=== PATIENT | female | born 1965 | race Asian ===

== ENCOUNTER 2024-07-25 00:06 | Emergency (ER) | payer MEDICAID, SELFPAY ==
[2024-07-25 00:07] VITALS: BMI 20.6
--- NOTE | 2024-07-25 00:09 | EKG_ITS ---
[facility] Test Date: 2024-07-25 Pat Name: CANDIDO RAMÍREZ Department: Room: - Gender: Female Director Of Industrial Relations: : 1965 Requested By: Lenin Phillips Order Number: [id number] Reading MD: Lenin Phillips Measurements Intervals Morning Sun Rate: 94 P: 59 MD: 167 QRS: 54 QRSD: 96 T: 57 QT: 356 QTc: 447 Interpretive Statements SINUS RHYTHM No previous ECG available for comparison /store/S0/[id number]/[id number].pdf
[2024-07-25 00:25] VITALS: BP 178/90; PULSE 98; RESP 18; TEMP 36.5; O2SAT 98
--- NOTE | 2024-07-25 00:51 | XR_ITS ---
Examination: CT brain head without contrast. 2-D sagittal coronal reconstructions Date and time of exam:July 25, 2024 0215 hrs. Indications: Headaches dizziness nausea vomiting today CTDI: vol (mGy):43 DLP: (mGycm):722 Technique: Multiple CT axial sections of the brain have been obtained, 5 mm slice thickness. Contrast has not been administered. 2-D sagittal, coronal reconstructions have been obtained Low dose protocols were performed. One or more of the following dose reduction techniques were used; automated exposure control, adjustment of the mA and/or KV according to patient size, use of iterative reconstruction technique. Findings: No significant ventricular enlargement. Intra-axial or extra-axial hemorrhage density is not seen. No mass effect or midline shift Basal cisterns are not remarkable. Fourth ventricle is midline. Cranial vault intact. Impression: Negative for acute hemorrhage, mass effect or midline shift
--- NOTE | 2024-07-25 00:51 | XR_ITS ---
Examination: AP chest single view Technique one AP upright portable chest single view Exam date 9: July 25, 2024 0057 hours Comparison December 27, 2015 INDICATIONS: Weakness dizziness today. FINDINGS: Again noted pleural parenchymal scarring right apex Normal heart size No interval pneumonia or pulmonary edema IMPRESSION: No interval pneumonia or pulmonary edema
--- NOTE | 2024-07-25 00:52 | EDRME_ITS ---
Rapid Medical Screening Exam [facility] Arrival date/time: 07/25/24 00:06 59F with history of HTN and DM presents to ED with head, neck pain w/o fall/trauma starting around 4 PM, as well as N/V and generalized weakness/dizziness. Chief Complaint: Dizziness Vital signs: Vital Signs Temperature 97.7 F 07/25/24 00:25 Pulse Rate 98 07/25/24 00:25 Respiratory Rate 18 07/25/24 00:25 Blood Pressure 178/90 H 07/25/24 00:25 Pulse Oximetry (%) 98 07/25/24 00:25 Oxygen Delivery Method Room Air 07/25/24 00:25
[2024-07-25] MEDS: ONDANSETRON ODT 4 MG TABRAP PO (01:08)
[2024-07-25 01:31] LABS: Basophils % (Auto) 0 % (0-2.5); Eosinophils % (Auto) 0 % (0-10); Hematocrit 45.3 % (36.0-46.0); Hemoglobin 16.2 g/dL (12.0-16.0); Immature Granulocytes % (Auto) 0 % (0-0); Immature Granulocytes Auto 0.03 Thou/mm3 (0.00-0.00); Lymphocytes # (Auto) 1.5 Thou/mm3 (1.0-4.8); Lymphocytes % (Auto) 18 % (10-50); Mean Corpuscular HGB Conc 35.8 g/dl (31.0-37.0); Mean Corpuscular Hemoglobin 29.6 pg (25.0-35.0); Mean Corpuscular Volume 83 fL (80-100); Monocytes # (Auto) 0.4 Thou/mm3 (0.0-0.8); Monocytes % (Auto) 5 % (0-12); Neutrophils # (Auto) 6.5 Thou/mm3 (1.8-7.7); Neutrophils % (Auto) 76 % (37-80); Nucleated Red Blood Cell % 0 /100 WBC (0); Platelet Count 277 Thou/mm3 (140-440); Red Blood Count 5.48 Miln/mm3 (4.00-5.20); White Blood Count 8.5 Thou/mm3 (3.6-11.0)
[2024-07-25] MEDS: MECLIZINE HCL 25 MG TABLET 50 MG PO (01:31)
[2024-07-25] MEDS: ONDANSETRON INJ 2 MG/ML INJ 2 ML 4 MG IV (01:31)
[2024-07-25 01:55] LABS: Alanine Aminotransferase 48 U/L (10-49); Albumin, Serum 5.2 gm/dL (3.4-4.8); Albumin/Globulin Ratio 1.9 (1.2-2.2); Alkaline Phosphatase 113 U/L (46-116); Anion Gap 11 (7-16); Aspartate Amino Transferase 33 U/L (0-34); BUN/Creatinine Ratio 15 Ratio (12-20); Bilirubin,Total 1.5 mg/dL (0.3-1.2); Blood Urea Nitrogen 12 mg/dL (9-23); Calcium 10.3 mg/dL (8.3-10.6); Calcium (Corrected) 10.3 mg/dL (8.5-10.1); Chloride 99 mMol/L (98-107); Creatinine (Component) 0.8 mg/dL (0.6-1.3); Globulin 2.8 gm/dL (2.3-3.5); Glucose 248 mg/dL (74-106); INR 0.9 (0.9-1.3); Lipase 48 U/L (12-53); Osmolality,Calculated 275 (275-295); Partial Thromboplastin Time 22.9 Seconds (22.0-36.0); Potassium 3.5 mMol/L (3.4-5.1); Prothrombin Time 10.4 Seconds (9.0-12.2); Sodium 134 mMol/L (136-145); Troponin I < 0.020 ng/mL (0.0-0.045); eGFR > 60 See Note
--- NOTE | 2024-07-25 02:53 | PRELIM_ITS ---
CT scan of the head without intravenous contrast (axial sections with sagittal and coronal reformats) July 25, 2024 0215 hoursClinical History: BHANDARI, N/V, dizzinessFindings:There is no evidence of int racranial hemorrhage, mass effect or midline shift. There is mild volume loss. The calvarium is unrem arkable. The mastoid air cells and the visualized paranasal sinuses are clear.Impression:No evidence of intracranial hemorrhage, mass effect or midline shift. Mild volume loss. Report Electronically Sig nikki By: Kiel Du 07/25/2024 2:53:24 AM [EST]
[2024-07-25 04:46] LABS: Collection Type, Urine Clean Catch
[2024-07-25 04:53] LABS: Bilirubin,Urine Negative (Negative); Blood,Urine Negative (Negative); Clarity,Urine Clear (Clear/Hazy); Color,Urine Colorless (Lt Yel-Yel); Glucose, Urine 4+ (Negative); Ketones,Urine 1+ (Negative); Leukocyte Esterase,Urine Negative (Negative); Nitrite,Urine Negative (Negative); PH,Urine 6.5 (5.0-7.0); Protein,Urine 1+ (Neg - Trace); RBC,Urine < 1 /hpf (0-3); Squamous Epithelial Cell,Urine 1 /hpf (0-5); Urobilinogen,Urine Negative mg/dL (0.0-1.0); WBC,Urine 5 /hpf (0-5)
[2024-07-25 05:27] VITALS: BP 166/81; PULSE 89; RESP 16; TEMP 36.8; O2SAT 96
--- NOTE | 2024-07-25 06:29 | PD.EDDIZZY ---
ED Dizzyness RME/HPI General Chief Complaint: Dizziness Stated Complaint: DIZZINESS AND VOMITING Time Seen by Provider: 07/25/24 06:13 Arrival date/time: 07/25/24 59-year-old female significant past medical history of hypertension presents to the emergency department at approximately midnight for complaints of intermittent dizziness for 1 week. Patient reports she had similar episode 1 week ago which had resolved and last night she had episode recurrent associated with vomiting. Patient denies any head injury, no fall, no chest pain, no dyspnea, no h/a, no blurry vision, no fever. Limitations: no limitations RME / HPI RME / HPI Narrative: 07/25/24 00:06 59F with history of HTN and DM presents to ED with head, neck pain w/o fall/trauma starting around 4 PM, as well as N/V and generalized weakness/dizziness. Related Data Previous Rx's ?Medication ?Instructions ?Recorded Hydrocodone/Acetaminophen * (NORCO 2 tab PO Q4H PRN PAIN #14 tabs 12/28/15 5/325 *) ibuprofen 600 mg tablet 600 mg PO Q8HR PRN PAIN #30 tabs 12/28/15 meclizine 25 mg tablet 25 mg PO QDAY PRN dizziness #14 07/25/24 tabs ondansetron 4 mg disintegrating 4 mg PO Q6H PRN nausea and 07/25/24 tablet vomiting #7 tabs Allergies Allergy/AdvReac Type Severity Reaction Status Date / Time NKA Allergy Unknown Uncoded 04/09/03 23:26 No Known Allergies Allergy Unknown Uncoded 12/27/15 20:50 Review of Systems Review of Systems Systems Reviewed: All systems reviewed, normal except as documented Narrative Review of Systems: Gen: No fever, no chills, no weight loss EYES: No discharge, no visual changes, no pain HEENT: No ear pain, no congestion, no sore throat PULM: No shortness of breath, no cough, no congestion CV: No chest pain, no dyspnea on exertion, no palpitations GI: No nausea, no vomiting, no diarrhea, no pain, no constipation : No frequency, no urgency, no dysuria Musc/skel: No joint pain, no back pain Skin: No rash Psyc: No hallucinations, no depression Heme/Lymph: No easy bleeding or bruising tendencies Neuro: No weakness, no headache, +Dizziness intermittent 1 week ED Exam General Limitations: Present no limitations General appearance: Present alert and in no apparent distress Head Head exam: Present atraumatic Eye Eye exam: Present normal appearance, PERRL and EOMI ENT ENT exam: Present normal exam, normal oropharynx and mucous membranes moist Neck Neck exam: Present normal inspection, full ROM and trachea midline Chest Chest inspection: Present normal inspection and symmetric chest wall rise Respiratory Respiratory exam: Present normal lung sounds bilaterally Cardiovascular Cardiovascular exam: Present regular rate, normal rhythm and normal heart sounds Abdominal Exam Abdominal exam: Present soft and normal bowel sounds Extremities Exam Extremities exam: Present normal inspection and full ROM Back Exam Back exam: Present normal inspection and full ROM Neurological Exam Neurological exam: Present alert, oriented X3 and CN II-XII intact Psychiatric Psychiatric exam: Present normal affect and normal mood Skin Skin exam: Present warm, dry, intact and normal color Course Quality Measures none Orders Category Date Time Status EKG (ED ONLY) *Do not use* NOW Care 07/25/24 00:[address] head/brain wo con Stat Exams 07/25/24 00:51 Taken EKG (ED Only) Stat Exams 07/25/24 00:09 Draft XR chest 1V portable Stat Exams 07/25/24 00:51 Taken CBC Stat Lab 07/25/24 01:07 Completed Comprehensive Metabolic Panel Stat Lab 07/25/24 01:07 Completed Lipase Stat Lab 07/25/24 01:07 Completed Partial Thromboplastin Time Stat Lab 07/25/24 01:07 Completed Prothrombin Time with INR Stat Lab 07/25/24 01:07 Completed Troponin I Stat Lab 07/25/24 01:07 Completed Urinalysis Stat Lab 07/25/24 04:16 Completed Meclizine HCl [Antivert] Med 07/25/24 01:18 Discontinued 50 mg PO X1 ONE Ondansetron Inj [Zofran Inj] Med 07/25/24 01:19 Discontinued 4 mg IV X1 ONE Ondansetron Odt [Zofran Odt] Med 07/25/24 00:51 Discontinued 4 mg PO X1 ONE Vital Signs Vital signs: Vital Signs Temperature 97.7 F 07/25/24 00:25 Pulse Rate 98 07/25/24 00:25 Respiratory Rate 18 07/25/24 00:25 Blood Pressure 178/90 H 07/25/24 00:25 Pulse Oximetry (%) 98 07/25/24 00:25 Oxygen Delivery Method Room Air 07/25/24 00:25 Dizziness MDM Narrative MDM Narrative:: Patient was evaluated by me at approximately 6 AM this morning. Patient had been here in the ER for 6 hours for complaints of intermittent dizziness. She had a full workup which included CBC CMP lipase, CT head and chest x-ray EKG troponin. All labs were reassuring. Negative troponin, no severe electrolyte imbalance. CT head was negative for any acute intracranial hemorrhage, or masses. Patient was treated with meclizine and Zofran. At the time of my evaluation patient had no symptoms of dizziness. Patient resting no headache. Patient reports she is feeling much better. Advised patient most likely her case is due to vertigo causing nausea. A prescription of medication will be sent to the pharmacy close follow-up with her PCP. I also advised patient she had a elevated glucose and glucose in her urine patient reports she is not diabetic. Advised that she needs to follow-up with her PCP on this issue reports that she will make an appointment today. Patient data External records reviewed:: [facility] previous records Clinical information provided by:: patient Social determinants that could affect healthcare access:: none Patient has the following chronic illnesses:: HTN How is presenting disease/condition affected by chronic disease/condition?: uneffected by Evaluation data The following diagnostics were reviewed and interpreted by me:: lab results, radiology exam(s) and EKG tracing(s) Lab and/or radiology exams considered but not ordered:: yes Interpretation Summary: Ordering Physician: Date of Service: Procedure(s): Accession Number(s): cc: ~ CT scan of the head without intravenous contrast (axial sections with sagittal and coronal reformats) July 25, 2024 0215 hours Clinical History: BHANDARI, N/V, dizziness Findings: There is no evidence of intracranial hemorrhage, mass effect or midline shift. There is mild volume loss. The calvarium is unremarkable. The mastoid air cells and the visualized paranasal sinuses are clear. Impression: No evidence of intracranial hemorrhage, mass effect or midline shift. Mild volume loss. Report Electronically Signed By: Kiel Du 07/25/2024 2:53:24 AM [EST] Medications / Prescriptions Medications or Prescriptions considered but not ordered:: yes rx Medication administrations:: Medication Administration History Discontinued Medications Meclizine HCl (Meclizine Hcl 25 Mg Tablet) 50 mg PO X1 ONE Stop: 07/25/24 01:19 Last Admin: 07/25/24 01:31 Dose: 50 mg Documented By: DB Ondansetron HCl (Ondansetron Odt 4 Mg Tabrap) 4 mg PO X1 ONE; Protocol Stop: 07/25/24 00:52 Last Admin: 07/25/24 01:08 Dose: 4 mg Documented By: Ondansetron HCl (Ondansetron Inj 2 Mg/Ml Inj 2 Ml) 4 mg IV X1 ONE; Protocol Stop: 07/25/24 01:20 Last Admin: 07/25/24 01:31 Dose: 4 mg Documented By: DB All medications administered and effective Consultations Consultation(s) initiated? (list below): No Diagnosis Dizziness Differential Diagnosis: adverse reaction to drug, benign paroxysmal positional vertigo, orthostatic hypotension, vertebral basilar insufficiency, cerebrovascular accident and transient cerebral ischemia Most likely diagnosis given after review of the tests above:: dizziness, vertigo Admission Indicated Admission indicated?: not indicated Admission Request Was there a request for admission?: No Disposition Plan Disposition Plan: Discharge Discharge Attestation Discharge Attestation: The patient and all family members were given an opportunity to ask questions and understood the discharge instructions. Discharge instructions specifically effects, indications for sooner follow up or return to the emergency department, and the expected course of current diagnosis. Patient condition: Stable Discharge Plan Plan Patient Disposition: HOME (Self Care) Patient condition on transfer: Stable Prescriptions/Referrals Prescriptions/Med Rec: New meclizine 25 mg tablet 25 mg PO QDAY PRN (Reason: dizziness) Qty: 14 0RF ondansetron 4 mg tablet,disintegrating 4 mg PO Q6H PRN (Reason: nausea and vomiting) Qty: 7 0RF No Action ibuprofen 600 MG tablet 600 mg PO Q8HR PRN (Reason: PAIN) Qty: 30 0RF Hydrocodone/Acetaminophen * (NORCO 5/325 *) 1 TAB tablet 2 tab PO Q4H PRN (Reason: PAIN) Qty: 14 0RF Referrals: Gonzalo Sow MD [Primary Care Provider] - In 1 week Problem List Clinical Impression: Dizziness Patient/Caregiver Discharge Instructions Discharge Activity: activity as tolerated Education Materials: Vertigo Medicine Tx, ED Dizziness, Uncertain Cause Additional Instructions: -It is very important that you make an appointment follow-up with your primary doctor in 24 to 48 hours. -Medication was sent to the pharmacy for dizziness and nausea medication. -Increase hydration, take your daily medications as directed. -Please return to the emergency department this any worsening symptoms change in condition. Print Language: Nauruan Stand Alone Forms: Yun Award Info., Patient Portal Info Letter PA/OPTICAL INSTRUMENT INSPECTOR Supervising Physician PA/OPTICAL INSTRUMENT INSPECTOR Supervising Physician: Dr Newell
[2024-07-25 06:34] VITALS: BP 155/86; PULSE 76; RESP 18; TEMP 36.7; O2SAT 97
== END 2024-07-25 06:35 | disposition home or self-care (01) ==
PROVIDERS: Physician Assistant; Emergency Provider Emergency Medicine; PCP Family Medicine
DX: R42 Dizziness and giddiness (principal); R51.9 Headache, unspecified; R11.2 Nausea with vomiting, unspecified; R53.1 Weakness; I10 Essential (primary) hypertension
CPT/HCPCS: 36415; 70450; 71045; 80053; 81001; 83690; 84484; 85025; 85610; 85730; 93005; 96374; 99284; J2405; Q0162; A9270